=== PATIENT | male | born 2000 | race American Indian/Alaskan Native ===

== ENCOUNTER 2018-11-27 18:05 | Emergency (ER) | payer MEDICAID ==
[2018-11-27] MEDS ORDERED: Ketorolac 60 MG/2 ML SDV IM ONE (18:40)
--- NOTE | 2018-11-27 18:42 | EDM.PDOC ---
ED HPI GENERAL MEDICAL PROBLEM - General Chief Complaint: Lower Extremity Injury/Pain Stated Complaint: HURT KNEE SKATEBOARDING Time Seen by Provider: 11/27/18 18:37 Source of Information: Reports: Patient, RN Notes Reviewed History Limitations: Reports: No Limitations - History of Present Illness INITIAL COMMENTS - FREE TEXT/NARRATIVE: 17-year-old gentleman presents to the emergency department today following a skateboarding injury yesterday he fell off his board hyperextended his right knee he has not done much for his knee he does complain of increasing pain and swelling difficult to walk Right Knee Pain Score (Numeric/FACES): 8 - Related Data Allergies Allergy/AdvReac Type Severity Reaction Status Date / Time No Known Allergies Allergy Verified 07/25/14 18:39 Home Meds: Home Meds NK [No Known Home Meds] 07/25/14 [History] Past Medical History - Past Health History Medical/Surgical History: Denies Medical/Surgical History - Past Surgical History HEENT Surgical History: Reports: Adenoidectomy, Tonsillectomy Social & Family History - Tobacco Use Smoking Status *Q: Current Every Day Smoker Years of Tobacco use: 9 Packs/Tins Daily: 1.5 - Caffeine Use Caffeine Use: Reports: Energy Drinks, Soda - Recreational Drug Use Recreational Drug Use: No Review of Systems - Review of Systems Review Of Systems: See Below Musculoskeletal: Reports: Joint Pain (Knee pain) Skin: Reports: Other (Edema) Neurological: Reports: No Symptoms ED EXAM, GENERAL - Physical Exam Exam: See Below Free Text/Narrative:: Examination the right knee I do appreciate the market amount edema difficult to do any type of exam he is tender to the touch anywhere along the knee pedal pulse is +2 Exam Limited By: No Limitations General Appearance: Alert, WD/WN, No Apparent Distress Respiratory/Chest: No Respiratory Distress Course - Vital Signs Last Recorded V/S: Last Vital Signs Temp 97.3 F 11/27/18 18:31 Pulse 91 11/27/18 18:31 Resp 20 11/27/18 18:31 BP 145/66 H 11/27/18 18:31 Pulse Ox - Orders/Labs/Meds Meds: Medications Discontinued Medications Generic Name Dose Route Start Last Admin Trade Name Freq PRN Reason Stop Dose Admin Fentanyl 50 mcg 11/27/18 19:37 11/27/18 19:41 Sublimaze IM 11/27/18 19:38 50 mcg ONETIME ONE Administration Ketorolac Tromethamine 60 mg 11/27/18 18:40 11/27/18 19:00 Toradol IM 11/27/18 18:41 60 mg ONETIME ONE Administration Departure - Departure Time of Disposition: 19:59 Disposition: Home, Self-Care 01 Condition: Fair Clinical Impression: Hyperextension injury of right knee Qualifiers: Encounter type: initial encounter Qualified Code(s): S89.81XA - Other specified injuries of right lower leg, initial encounter - Discharge Information Referrals: PCP,None [Primary Care Provider] - Forms: ED Department Discharge Additional Instructions: Use ibuprofen for baseline pain control, use hydrocodone for breakthrough pain, continue to use crutches for comfort until reevaluated by orthopedics, though orthopedics department will call you tomorrow for an appointment time - Assessment/Plan Plan: Assessment Acuity = acute Site and laterality = hyperextension right knee Etiology = secondary to skateboarding injury Manifestations = pain Location of injury = Home Lab values = x-ray shows no acute fracture Plan I did review x-ray results with him prescription written for hydrocodone 5/325 one tab by mouth 3 times a day when necessary total #10 he is also set up for appointment with orthopedics for follow-up given an Elo wrap and crutches This note was dictated using [employer] voice recognition software please call with any questions on syntax or grammar.
[2018-11-27] MEDS ORDERED: fentaNYL 100 MCG/2 ML SDV IM ONE (19:37)
--- NOTE | 2018-11-27 19:39 | CRLCR ---
Indication: Pain, hyperextension Technique: Three views right knee Comparison: None. Findings: Bones: Alignment is normal. No fractures or bone lesions. Joint spaces: Unremarkable. Soft tissues: There may be a small suprapatellar effusion. Impression: No acute osseous abnormality. Possible small suprapatellar effusion.. Dictated by Natacha Drake MD @ Nov 27 2018 7:35PM Signed by Dr. Natacha Drake @ Nov 27 2018 7:37PM
== END 2018-11-27 20:27 | disposition home or self-care (01) ==
LOC: JP.ED 18:05
DX: S89.81XA Other specified injuries of right lower leg, initial encounter (principal); F17.210 Nicotine dependence, cigarettes, uncomplicated; V00.131A Fall from skateboard, initial encounter
CPT/HCPCS: 73562; 96372; 99283; J1885; J3010